=== PATIENT | female | born 1975 | race African-American/Black ===

== ENCOUNTER 2016-09-16 15:35 | Emergency (ER) | payer OTHER ==
[~2016-09-16] VITALS: Ht 157.5 cm; Wt 74.8 kg
[~2016-09-16 15:35] MED LIST: ATEN25TA21 PO; INSUINJ47 SC; LISI20TA24 PO; METF500T PO
[2016-09-16 17:15] VITALS: BP 110/74; TEMP 98.2
== END 2016-09-16 17:16 | disposition home or self-care (01) ==
LOC: ED 15:35
DX: M94.0 Chondrocostal junction syndrome [Tietze] (principal); R07.89 Other chest pain
CPT/HCPCS: 36415; 93005; 99283

== ENCOUNTER 2016-11-06 14:29 | Emergency (ER) | payer OTHER ==
[~2016-11-06] VITALS: Ht 157.5 cm; Wt 81.6 kg
[2016-11-06 14:45] VITALS: TEMP 98.8
[2016-11-06 15:30] VITALS: BP 130/78
== END 2016-11-06 15:30 | disposition home or self-care (01) ==
LOC: ED 14:29
DX: M54.5 Low back pain (principal); M54.16 Radiculopathy, lumbar region; M46.1 Sacroiliitis, not elsewhere classified
CPT/HCPCS: 96372; 99282; J1885; J2930

== ENCOUNTER 2016-12-26 09:13 | Emergency (ER) | payer OTHER ==
[~2016-12-26] VITALS: Ht 157.5 cm; Wt 75.8 kg
[2016-12-26 09:20] VITALS: TEMP 98.4
[2016-12-26 09:59] LABS: PLATELET COUNT 281 K/uL (152-353)
[2016-12-26 10:04] LABS: POTASSIUM 4.2 mmol/L (3.6-5.2); SODIUM 131 mmol/L (136-145)
[2016-12-26 10:30] VITALS: BP 132/80
== END 2016-12-26 10:40 | disposition home or self-care (01) ==
LOC: ED 09:13
PROVIDERS: Specialist
DX: N12 Tubulo-interstitial nephritis, not specified as acute or chronic (principal)
CPT/HCPCS: 36415; 80048; 81000; 81025; 85027; 87086; 87088; 96372; 99283; J0690

== ENCOUNTER 2017-02-15 21:05 | Observation (INO) | payer OTHER ==
[~2017-02-15] VITALS: Ht 157.5 cm; Wt 76.3 kg
[2017-02-15 22:18] VITALS: BP 127/71; TEMP 98.3
[2017-02-15 22:54] LABS: PLATELET COUNT 271 K/uL (152-353)
[2017-02-15 22:59] LABS: SODIUM 132 mmol/L (136-145)
[2017-02-16 01:19] VITALS: BP 106/61; TEMP 97.9; Ht 157.5 cm; Wt 76.3 kg
--- NOTE | 2017-02-16 01:44 | NUR ---
02/16/17 0055: RECEIVED PT FROM ER BY WHEELCHAIR TO ROOM 1108. PT AWAKE, ALERT, DENIES CHEST PAIN AT THIS TIME. PT SPEAKS [place], BUT CAN SPEAK AND UNDERSTAND SOME IRISH.
[2017-02-16 04:00] VITALS: BP 90/50; TEMP 98.1
[2017-02-16 08:00] VITALS: BP 92/56; TEMP 98.3
[2017-02-16 10:44] LABS: PLATELET COUNT 265 K/uL (152-353)
[2017-02-16 11:44] LABS: POTASSIUM 3.8 mmol/L (3.6-5.2); SODIUM 132 mmol/L (136-145)
[2017-02-16 12:00] VITALS: BP 95/53; TEMP 98.4
[2017-02-16 16:00] VITALS: BP 105/54; TEMP 98.4
--- NOTE | 2017-02-16 17:05 | NUR ---
D/C INSTRUCTIONS GIVEN TO PT. INFORMED TO F/U WIT PCP WITHIN 3 - 5 DAYS. IV D/C'D CATH TIP INTACT L AC 20G.
== END 2017-02-16 17:15 | disposition home or self-care (01) ==
LOC: ED 21:05 → MED/SURG 23:30
PROVIDERS: Emergency Medicine
DX: R07.89 Other chest pain (principal); I10 Essential (primary) hypertension; E11.9 Type 2 diabetes mellitus without complications
CPT/HCPCS: 36415; 80053; 82550; 82553; 83735; 84484; 85027; 93005; 94760; 96372; 99220; 99283; G0378; J1650

== ENCOUNTER 2017-10-24 14:09 | Emergency (ER) | payer OTHER ==
[~2017-10-24] VITALS: Ht 157.5 cm; Wt 76.2 kg
[2017-10-24 15:12] LABS: PLATELET COUNT 294 K/uL (152-353)
[2017-10-24 15:16] LABS: POTASSIUM 3.9 mmol/L (3.6-5.2)
[2017-10-24 16:05] VITALS: BP 147/66; TEMP 97.7
== END 2017-10-24 16:05 | disposition home or self-care (01) ==
LOC: ED 14:09
PROVIDERS: Family Medicine
DX: R10.13 Epigastric pain (principal); E11.65 Type 2 diabetes mellitus with hyperglycemia
CPT/HCPCS: 36415; 80053; 81000; 81025; 85027; 99282

== ENCOUNTER 2018-03-28 15:07 | Emergency (ER) | payer OTHER ==
[~2018-03-28] VITALS: Ht 157.5 cm; Wt 78.9 kg
[2018-03-28 16:14] LABS: PLATELET COUNT 277 K/uL (152-353)
[2018-03-28 16:25] LABS: SODIUM 133 mmol/L (136-145)
[2018-03-28 20:10] VITALS: BP 122/61; TEMP 97.7
== END 2018-03-28 20:10 | disposition home or self-care (01) ==
LOC: ED 15:07
PROVIDERS: Emergency Medicine
DX: R07.89 Other chest pain (principal)
CPT/HCPCS: 36415; 80053; 82150; 82550; 82553; 83690; 84484; 85027; 85379; 93005; 99283

== ENCOUNTER 2018-05-02 08:47 | Outpatient (CLI) | payer OTHER | END 2018-05-02 21:30 | disposition home or self-care (01) | LOC: MAMMO 08:47 | DX: Z12.31 Encounter for screening mammogram for malignant neoplasm of breast (principal) ==

== ENCOUNTER 2018-08-23 13:04 | Emergency (ER) | payer OTHER ==
[~2018-08-23] VITALS: Ht 157.5 cm; Wt 72.6 kg
[2018-08-23 13:13] VITALS: TEMP 97.7
[2018-08-23 14:02] LABS: PLATELET COUNT 300 K/uL (152-353)
[2018-08-23 14:21] LABS: POTASSIUM 4.2 mmol/L (3.6-5.2)
[2018-08-23 14:55] VITALS: BP 136/83
== END 2018-08-23 14:56 | disposition home or self-care (01) ==
LOC: ED 13:04
DX: J02.9 Acute pharyngitis, unspecified (principal); E11.65 Type 2 diabetes mellitus with hyperglycemia
CPT/HCPCS: 36415; 80053; 85027; 87502; 87651; 99283; J1815

== ENCOUNTER 2018-10-04 12:06 | Emergency (ER) | payer OTHER ==
[~2018-10-04] VITALS: Ht 157.5 cm; Wt 74.8 kg
[2018-10-04 12:10] VITALS: BP 131/79; TEMP 97.8
== END 2018-10-04 13:26 | disposition home or self-care (01) ==
LOC: ED 12:06
DX: H66.93 Otitis media, unspecified, bilateral (principal); J02.9 Acute pharyngitis, unspecified
CPT/HCPCS: 82962; 87502; 87651; 99283

== ENCOUNTER 2018-12-20 12:32 | Emergency (ER) | payer OTHER ==
[~2018-12-20] VITALS: Ht 157.5 cm; Wt 74.8 kg
[2018-12-20 12:37] VITALS: BP 121/69; TEMP 97.8
[2018-12-20 13:19] LABS: PLATELET COUNT 252 K/uL (152-353)
[2018-12-20 13:33] LABS: POTASSIUM 3.8 mmol/L (3.6-5.2)
== END 2018-12-20 15:20 | disposition home or self-care (01) ==
LOC: ED 12:32
PROVIDERS: Family Medicine
DX: E11.65 Type 2 diabetes mellitus with hyperglycemia (principal); E86.0 Dehydration; R11.2 Nausea with vomiting, unspecified; K29.70 Gastritis, unspecified, without bleeding
CPT/HCPCS: 36415; 74022; 80053; 81000; 81025; 82150; 82962; 83690; 85027; 96360; 96375; 99284; J1815

== ENCOUNTER 2020-03-05 14:23 | Emergency (ER) | payer OTHER ==
[~2020-03-05] VITALS: Ht 157.5 cm; Wt 72.6 kg
[2020-03-05 14:33] VITALS: TEMP 98.9
[2020-03-05] MEDS ORDERED: ZESTRIL40 MG PO (15:22)
[2020-03-05] MEDS ORDERED: INSUINJ47 SC (15:23)
[2020-03-05] MEDS ORDERED: LOVA20TA PO (15:23)
[2020-03-05 15:47] LABS: PLATELET COUNT 271 K/uL (152-353)
[2020-03-05 15:58] LABS: POTASSIUM 4.2 mmol/L (3.6-5.2); SODIUM 132 mmol/L (136-145)
[2020-03-05 17:30] VITALS: BP 114/62
== END 2020-03-05 18:17 | disposition home or self-care (01) ==
LOC: ED 14:23
DX: U07.1 COVID-19 (principal); J18.8 Other pneumonia, unspecified organism; E11.65 Type 2 diabetes mellitus with hyperglycemia
CPT/HCPCS: 36415; 80053; 81002; 83605; 84484; 85027; 87040; 87635; 93005; 96360; 96361; 96365; 99284; G2023; J0696; J1815; U00003

== ENCOUNTER 2020-08-28 17:13 | Emergency (ER) | payer OTHER ==
[~2020-08-28] VITALS: Ht 157.5 cm; Wt 77.1 kg
[~2020-08-28 17:13] MED LIST changes: +LOVA20TA PO; +ZESTRIL40 MG PO
[2020-08-28 19:23] LABS: PLATELET COUNT 302 K/uL (152-353)
[2020-08-28 19:39] LABS: POTASSIUM 4.3 mmol/L (3.6-5.2)
[2020-08-28 20:52] VITALS: BP 127/78; TEMP 98.7
== END 2020-08-28 20:52 | disposition home or self-care (01) ==
LOC: ED 17:13
PROVIDERS: Family Medicine
DX: M19.012 Primary osteoarthritis, left shoulder (principal); M62.838 Other muscle spasm; E11.65 Type 2 diabetes mellitus with hyperglycemia; Z79.4 Long term (current) use of insulin; M25.511 Pain in right shoulder
CPT/HCPCS: 36415; 80053; 81000; 82962; 85027; 96372; 99283; J1815; J1885

== ENCOUNTER 2020-09-16 13:15 | Emergency (ER) | payer OTHER ==
[~2020-09-16] VITALS: Ht 157.5 cm; Wt 72.6 kg
[2020-09-16 13:29] VITALS: TEMP 99.1
[2020-09-16] MEDS ORDERED: ACYCLOVIR800 MG PO (13:39)
[2020-09-16] MEDS ORDERED: PREDNISONE10 M1 PO (13:40)
[2020-09-16 14:11] LABS: POTASSIUM 4.5 mmol/L (3.6-5.2); SODIUM 134 mmol/L (136-145)
[2020-09-16 14:16] LABS: PLATELET COUNT 292 K/uL (152-353)
[2020-09-16 14:27] LABS: PARTIAL THROMBOPLASTIN TIME 23.6 SECONDS (24.5-33.6)
[2020-09-16 14:30] VITALS: BP 128/64
== END 2020-09-16 15:16 | disposition home or self-care (01) ==
LOC: ED 13:15
PROVIDERS: Hospitalist
DX: G51.0 Bell's palsy (principal)
CPT/HCPCS: 36415; 80053; 82550; 83880; 84484; 85027; 85610; 85730; 93005; 96374; 96375; 99284; J1100; J2405

== ENCOUNTER 2021-02-04 10:49 | Emergency (ER) | payer OTHER ==
[~2021-02-04 10:49] MED LIST changes: +ACYCLOVIR800 MG PO; +PREDNISONE10 M1 PO
== END 2021-02-04 13:40 | disposition home or self-care (01) ==
LOC: ED 10:49
DX: J06.9 Acute upper respiratory infection, unspecified (principal); E11.65 Type 2 diabetes mellitus with hyperglycemia; Z79.4 Long term (current) use of insulin; Z91.19 Patient's noncompliance with other medical treatment and regimen
CPT/HCPCS: 82948; 99282